=== PATIENT | female | born 1995 | race African-American/Black ===

== ENCOUNTER 2017-06-09 11:42 | Inpatient (IN) | payer OTHER ==
[~2017-06-09] VITALS: Ht 167.6 cm; Wt 73.9 kg
[2017-06-09] MEDS ORDERED: PREN-380 PO (15:49)
[2017-06-09] MEDS ORDERED: NALBUPHINE HYDROCHLORIDE 10 MG/ML VIAL IVP PRN (15:50)
[2017-06-09] MEDS ORDERED: MISOPROSTOL 25 MCG TAB VG PRN (15:50)
[2017-06-09] MEDS ORDERED: METHYLERGONOVINE 0.2 MG/ML AMP IM PRN (15:50)
[2017-06-09] MEDS ORDERED: CARBOPROST 250 MCG/ML AMP IM PRN (15:50)
[2017-06-09] MEDS ORDERED: PROMETHAZINE 25 MG/ML VIAL IVP PRN (15:50)
[2017-06-09] MEDS ORDERED: OXYTOCIN 10 UNITS/ML VIAL IM SCH (15:50)
[2017-06-09] MEDS ORDERED: LACTATED RINGERS 1,000 ML IV SCH (15:50)
[2017-06-09] MEDS ORDERED: MISOPROSTOL 25 MCG TAB ONE (16:52)
[2017-06-09 17:17] LABS: BILIRUBIN,URINE NEGATIVE (NEGATIVE); BLOOD, URINE NEGATIVE (NEGATIVE); COLOR,URINE YELLOW (YELLOW); LEUKOCYTE ESTERASE ,URINE 1+ (NEGATIVE); NITRITE, URINE NEGATIVE (NEGATIVE); UGLUCOSE NEGATIVE (NEGATIVE)
[2017-06-09 17:21] LABS: ALBUMIN 2.8 g/dL (3.4-5.0); ANION GAP 14.3 (8-16); CARBON DIOXIDE 23.4 mmol/L (21-32); CREATININE 0.6 mg/dL (0.6-1.3); POTASSIUM 3.7 mmol/L (3.5-5.1); TOTAL BILIRUBIN 0.3 mg/dL (0.0-1.0)
[2017-06-09 17:24] LABS: BASOPHILS # (AUTO) 0.1 K/uL (0.00-0.22); BASOPHILS % (AUTO) 0.8 % (0.0-2.0); EOSINOPHILS # (AUTO) 0.1 K/uL (0-0.4); EOSINOPHILS % (AUTO) 0.6 % (0.0-4.0); HEMATOCRIT 34.3 % (36-48); HEMOGLOBIN 11.2 g/dL (12.0-16.0); LYMPHOCYTES # (AUTO) 1.7 K/uL (2.5-16.5); LYMPHOCYTES % (AUTO) 15.8 % (20.5-51.1); MEAN CORPUSCULAR HEMOGLOBIN 26 pg (27-31); MEAN CORPUSCULAR HGB CONC 33 g/dL (33-37); MEAN CORPUSCULAR VOLUME 79 fL (80-94); MONOCYTES # (AUTO) 0.7 K/uL (0.8-1.0); MONOCYTES % (AUTO) 6.7 % (1.7-9.3); NEUTROPHILS # (AUTO) 8.4 K/uL (1.8-7.7); NEUTROPHILS % (AUTO) 76.1 % (42.2-75.2); PLATELET COUNT (AUTO) 268 K/uL (140-450); RED BLOOD CELL COUNT(AUTO) 4.34 MIL/uL (4.20-5.40); RED CELL DISTRIBUTION WIDTH 12.8 % (11.6-13.7)
[2017-06-09 17:24] LABS: APPEARANCE,URINE HAZY (CLEAR)
[2017-06-09 17:29] LABS: RBC,URINE 0-5 (RARE) /HPF (0-5)
[2017-06-09 17:43] LABS: BARBITURATE, URINE NEGATIVE ng/ml (NEG <=200); BENZODIAZEPINE, URINE NEGATIVE ng/mL (NEG <=200); CANNABINOID, URINE NEGATIVE ng/mL (NEG <=50); COCAINE, URINE NEGATIVE ng/mL (NEG <=300); OPIATE, URINE NEGATIVE ng/mL (NEG <=2000); PHENCYCLIDINE SCREEN,URINE NEGATIVE ng/mL (NEG <=25)
[2017-06-09 18:02] VITALS: BP 124/81
[2017-06-10] MEDS ORDERED: OXYTOCIN 10 UNITS/ML VIAL ONE (01:37)
[2017-06-10] MEDS ORDERED: OXYTOCIN 20 UNITS/LR PREMIX 0 ML IV ONE (01:37)
[2017-06-10] MEDS ORDERED: LIDOCAINE MPF 1% - **ER/OR** 0 ML ONE (02:31)
[2017-06-10] MEDS ORDERED: TEMAZEPAM 15 MG CAP PO PRN (02:35)
[2017-06-10] MEDS ORDERED: BENZOCAINE/MENTHOL 20%-0.5% 60 GM CAN TP PRN (02:35)
[2017-06-10] MEDS ORDERED: METHYLERGONOVINE 0.2 MG TAB PO PRN (02:35)
[2017-06-10] MEDS ORDERED: SODIUM PHOSPHATE 118 ML ENEM RC PRN (02:35)
[2017-06-10] MEDS ORDERED: HYDROcodone/APAP 5/325 MG 1 TAB TAB PO PRN (02:35)
[2017-06-10] MEDS ORDERED: OXYTOCIN 10 UNITS/ML VIAL IM PRN (02:35)
[2017-06-10] MEDS ORDERED: oxyCODONE/APAP 5/325 MG 1 TAB TAB PO PRN (02:35)
[2017-06-10] MEDS ORDERED: METHYLERGONOVINE 0.2 MG/ML AMP IM PRN (02:35)
--- NOTE | 2017-06-10 08:53 | NUR ---
PATIENT HAS BEEN SCREENED AND CATEGORIZED LOW NUTRITION RISK. PATIENT WILL BE SEEN WITHIN 7 DAYS OF ADMISSION. 06/15/[address]
[2017-06-10] MEDS ORDERED: DOCUSATE SOD/SENNA 50/8.6 MG 1 TAB PO SCH (21:00)
[2017-06-11 06:30] LABS: HEMATOCRIT 31.8 % (36-48); HEMOGLOBIN 10.6 g/dL (12.0-16.0)
[2017-06-11] MEDS ORDERED: DOCUSATE SOD/SENNA 50/8.6 MG 1 TAB PO SCH (21:00)
== END 2017-06-11 11:15 | disposition home or self-care (01) | DRG 560 ==
LOC: MLD 15:00 → MFCC 06-10 04:44
PROVIDERS: ADMIT Obstetrics & Gynecology; ATTEND Obstetrics & Gynecology
PROC: 10E0XZZ Delivery of Products of Conception, External Approach (ICD-10-PCS; principal; 2017-06-10)
DX: O69.81X0 Labor and delivery complicated by cord around neck, without compression, not applicable or unspecified (principal); Z37.0 Single live birth; Z3A.40 40 weeks gestation of pregnancy
CPT/HCPCS: 36415; 59200; 59409; 80053; 80305; 81001; 85018; 85025; 86592; 86886; 86900; 86901; 87086; J2001; J2590; J7120